=== PATIENT | female | born 1990 | race Caucasian/White ===

== ENCOUNTER 2016-10-25 04:47 | Emergency (ER) | payer OTHER ==
[~2016-10-25] VITALS: Ht 170.2 cm; Wt 72.5 kg
[2016-10-25 04:52] VITALS: Ht 170.2 cm; Wt 72.5 kg
[2016-10-25] MEDS ORDERED: SOD CHLORIDE 0.9% 1,000 ML IV STA (05:00)
[2016-10-25] MEDS ORDERED: PRENAT PO (05:33)
--- NOTE | 2016-10-25 05:41 | RADRPT ---
PROCEDURE: US Abdomen. CLINICAL INDICATION: Right upper quadrant pain TECHNIQUE: Arias scale and color Doppler imaging of the right upper quadrant COMPARISON: None FINDINGS: The liver is homogeneous in echotexture and no focal liver lesions are seen. The gallbladder is nor mal in appearance without evidence of stones, sludge, or wall thickening. No intra or extrahepatic b iliary dilatation is seen. The common bile duct measures 5 mm in maximal dimension. The right kidne y measures 11.2 cm. No hydronephrosis or renal calculi are seen. The pancreas was unremarkable in appearance.. No ascites is seen. IMPRESSION: Study slightly limited by bowel gas. No definite acute abnormality. RPTAT: [facility] Physician Steven Date Time Electronically viewed and signed by Shyla Alcantara Physician on 10/25/2016 05:40 DANA/
[2016-10-25 05:54] LABS: BASOPHILS % 0.5 % (0.0-2.0); EOSINOPHILS # 0.2 10^3/ul (0.0-0.5); EOSINOPHILS % 2.8 % (0.0-7.0); HEMATOCRIT 34.9 % (37.0-47.0); HEMOGLOBIN 11.5 g/dl (12.0-16.0); LYMPHOCYTES # 1.9 10^3/ul (0.8-2.9); LYMPHOCYTES % 23.4 % (15.0-51.0); MEAN CORPUSCULAR HEMOGLOBIN 29.4 pg (29.0-33.0); MEAN CORPUSCULAR VOLUME 89.3 fl (82.0-101.0); MEAN PLATELET VOLUME 10.9 fl (7.4-10.4); MONOCYTE # 0.7 10^3/ul (0.3-0.9); NEUTROPHIL # 5.1 10^3/ul (1.6-7.5); NEUTROPHILS % 63.4 % (39.0-77.0); PLATELET COUNT 294 10^3/UL (140-415); RED BLOOD COUNT 3.91 10^6/ul (4.20-5.40)
[2016-10-25 06:27] LABS: ALBUMIN 3.9 g/dl (3.3-4.9); ALBUMIN/GLOBULIN RATIO 1.18; BILIRUBIN,INDIRECT 0.2 mg/dl (0-1.1); BILIRUBIN,TOTAL 0.2 mg/dl (0.2-1.3); CALCIUM 9.5 mg/dl (8.4-10.2); CREATININE 0.52 mg/dl (0.44-1.00); POTASSIUM 3.9 mmol/L (3.5-5.1); TOTAL PROTEIN 7.2 g/dl (6.1-8.1)
[2016-10-25] MEDS ORDERED: LIDOCAINE/MYLANTA 40 ML BTL PO ONE (06:30)
[2016-10-25] MEDS ORDERED: ACETAMINOPHEN 325 MG TAB PO ONE (06:30)
[2016-10-25 06:56] LABS: ADD UMIC YES; UR AMORPHOUS CRYSTAL FEW /HPF (NONE SEEN); UR ASCORBIC ACID NEGATIVE (NEGATIVE); UR BACTERIA FEW /HPF (NONE SEEN); UR BILIRUBIN (Dip) NEGATIVE (NEGATIVE); UR BLOOD (Dip) NEGATIVE (NEGATIVE); UR CLARITY CLOUDY (CLEAR); UR COLOR YELLOW (YELLOW); UR GLUCOSE (Dip) NEGATIVE (NEGATIVE); UR KETONES (Dip) NEGATIVE (NEGATIVE); UR LEUKOCYTE ESTERASE (Dip) NEGATIVE Leu/ul (NEGATIVE); UR NITRITE (Dip) NEGATIVE (NEGATIVE); UR RBC 1 /HPF (0-5); UR SPECIFIC GRAVITY (Dip) 1.013 (1.003-1.030); UR TOTAL PROTEIN (Dip) NEGATIVE (NEGATIVE); UR UROBILINOGEN (Dip) NEGATIVE (NEGATIVE)
[2016-10-25] MEDS ORDERED: ACET325T33 PO (07:23)
--- NOTE | 2016-10-25 08:05 | ERD ---
ER Documentation Chief Complaint Date/Time DATE: 10/25/16 TIME: 08:03 Chief Complaint 19 wks w/ c/o upper abd pain since 1 hour ago HPI Patient is a 26-year-old female with no medical problems who presents with abdominal pain. She has upper abdominal pain that started at 4 AM. It was sharp in intensity and she described it as an 11 out of 10 pain. She said that she could not breathe. She felt better now and feels like she is a 6 out of 10. She has had no treatment as of yet. She said that it hurt worse with movement and touch. She is 19 weeks and has pain in her lower abdomen "all the time". She denies fevers, vomiting, or diarrhea. Her primary doctor is Dr. Werner. She does have an OB doctor as well. Upon review of old medical records this is the patient's first visit to the emergency department. ROS All systems reviewed and are negative except as per history of present illness. Medications Home Meds Active Scripts Acetaminophen* (Tylenol*) 325 Mg Tablet, 2 TAB PO Q8 Y for PAIN AND OR ELEVATED TEMP, #20 TAB Prov:WILLIAMS LAND MD 10/25/16 Reported Medications Multivit/Min/Fol Ac/Iron/Pren* ( S*) 1 Tab Tab, 1 TAB PO DAILY, TAB 10/25/16 Allergies Allergies: Coded Allergies: No Known Allergy (Unverified , 10/25/16) PMhx/Soc Medical and Surgical Hx: pt denies Medical Hx, pt denies Surgical Hx Hx Alcohol Use: No Hx Substance Use: No Hx Tobacco Use: No Smoking Status: Never smoker FmHx Family History: diabetes Physical Exam Vitals Vital Signs Date Time Temp Pulse Resp B/P Pulse Ox O2 Delivery O2 Flow Rate FiO2 10/25/16 07:43 98.1 80 16 101/67 100 Room Air 10/25/16 04:52 98.2 92 20 128/71 99 Physical Exam Const: No acute distress Head: Atraumatic Eyes: Normal Conjunctiva ENT: Normal External Ears, Nose and Mouth. Neck: Full range of motion..~ No meningismus. Resp: Clear to auscultation bilaterally Cardio: Regular rate and rhythm, no murmurs Abd: Soft, mild tenderness to the midepigastric region without rebound or guarding Skin: No petechiae or rashes Back: No midline or flank tenderness Ext: No cyanosis, or edema Neur: Awake and alert Psych: Normal Mood and Affect Result Diagram: 10/25/1630 10/25/16 0530 Results 24 hrs Laboratory Tests Test 10/25/16 05:30 10/25/16 05:50 White Blood Count 8.010^3/ul Red Blood Count 3.9110^6/ul Hemoglobin 11.5g/dl Hematocrit 34.9% Mean Corpuscular Volume 89.3fl Mean Corpuscular Hemoglobin 29.4pg Mean Corpuscular Hemoglobin Concent 33.0g/dl Red Cell Distribution Width 16.0% Platelet Count 76187^3/UL Mean Platelet Volume 10.9fl Neutrophils % 63.4% Lymphocytes % 23.4% Monocytes % 9.0% Eosinophils % 2.8% Basophils % 0.5% Nucleated Red Blood Cells % 0.0/100WBC Neutrophils # 5.110^3/ul Lymphocytes # 1.910^3/ul Monocytes # 0.710^3/ul Eosinophils # 0.210^3/ul Basophils # 0.010^3/ul Nucleated Red Blood Cells # 0.010^3/ul Sodium Level 140mmol/L Potassium Level 3.9mmol/L Chloride Level 103mmol/L Carbon Dioxide Level 24mmol/L Anion Gap 17 Blood Urea Nitrogen 6mg/dl Creatinine 0.52mg/dl Glucose Level 83mg/dl Calcium Level 9.5mg/dl Total Bilirubin 0.2mg/dl Direct Bilirubin 0.00mg/dl Indirect Bilirubin 0.2mg/dl Aspartate Amino Transf (AST/SGOT) 20IU/L Alanine Aminotransferase (ALT/SGPT) 30IU/L Alkaline Phosphatase 49IU/L Total Protein 7.2g/dl Albumin 3.9g/dl Globulin 3.30g/dl Albumin/Globulin Ratio 1.18 Lipase 66U/L Beta HCG, Quantitative 94635.0mIU/ml Urine Color YELLOW Urine Clarity CLOUDY Urine pH 7.0 Urine Specific Tea 1.013 Urine Ketones NEGATIVEmg/dL Urine Nitrite NEGATIVEmg/dL Urine Bilirubin NEGATIVEmg/dL Urine Urobilinogen NEGATIVEmg/dL Urine Leukocyte Esterase NEGATIVELeu/ul Urine Microscopic RBC 1/HPF Urine Microscopic WBC 2/HPF Urine Amorphous Crystals FEW/HPF Urine Bacteria FEW/HPF Urine Hemoglobin NEGATIVEmg/dL Urine Glucose NEGATIVEmg/dL Urine Total Protein NEGATIVEmg/dl Current Medications Medications (Trade) Dose Ordered Sig/Britta Route PRN Reason Start Time Stop Time Status Last Admin Dose Admin Sodium Chloride (NS) 1,000 ml @ 1,000 mls/hr Q1H STAT IV 10/25/16 05:00 10/25/16 05:59 DC 10/25/16 05:54 Miscellaneous Medication (Gi Cocktail (2)) 40 ml ONCE ONCE PO 10/25/16 06:30 10/25/16 06:31 DC 10/25/16 06:58 Acetaminophen (Tylenol Tab) 650 mg ONCE ONCE PO 10/25/16 06:30 10/25/16 06:31 DC 10/25/16 06:58 Procedures/MDM Ultrasound negative of the gallbladder per radiology. Patient is a 26-year-old female with no medical problems who presents with upper abdominal pain. Her hemoglobin shows anemia with a hemoglobin of 11.5 but she does not require transfusion. LFTs and lipase are normal. White blood cell count is normal. At this point I doubt acute cholecystitis, pancreatitis, appendicitis, or bowel obstruction. I believe outpatient management is appropriate but the patient will need close follow-up with her primary doctor within 24 hours. She was given a GI cocktail and Tylenol for her pain. She can return for any worsening symptoms. She denies any vaginal bleeding or leakage of fluid at this time. Departure Diagnosis: Primary Impression: Abdominal pain Abdominal location: epigastric Qualified Code: R10.13 - Epigastric pain Condition: Fair Patient Instructions: Abdominal Pain Referrals: MARIANN WERNER Additional Instructions: Call your primary care doctor TOMORROW for an appointment during the next 1-2 days.See the doctor sooner or return here if your condition worsens before your appointment time. WILLIAMS LAND MD Oct 25, 2016 08:05
[2016-10-25 08:15] VITALS: BP 107/64; PULSE 82; RESP 16; TEMP 98.2
== END 2016-10-25 08:31 | disposition home or self-care (01) ==
LOC: E/R 04:47
DX: O26.892 Other specified pregnancy related conditions, second trimester (principal); R10.13 Epigastric pain; Z3A.19 19 weeks gestation of pregnancy
CPT/HCPCS: 76705; 80053; 81001; 83690; 84702; 85025; 86900; 86901; 87086; J7030; 36415; 96360; 96361